=== PATIENT | male | born 1995 | race Caucasian/White ===

== ENCOUNTER 2020-10-29 15:24 | Emergency (ER) | payer SELFPAY ==
[~2020-10-29] VITALS: Ht 190.5 cm; Wt 81.6 kg
[2020-10-29 15:32] VITALS: BP 129/81
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
[2020-10-29] MEDS ORDERED: AMOX-430 PO (15:44)
[2020-10-29] MEDS ORDERED: IBUP-1955 PO (15:44)
--- NOTE | 2020-10-29 15:56 | NUR ---
Patient discharged to home in stable condition. Written and verbal after care instructions given. Patient verbalizes understanding of instruction but refused to sign discharge papers.
== END 2020-10-29 15:57 | disposition home or self-care (01) ==
LOC: ER 15:27
DX: S00.11XA Contusion of right eyelid and periocular area, initial encounter (principal); S00.511A Abrasion of lip, initial encounter; Z72.89 Other problems related to lifestyle; Y04.0XXA Assault by unarmed brawl or fight, initial encounter; Y93.89 Activity, other specified; Y92.89 Other specified places as the place of occurrence of the external cause; Y99.8 Other external cause status